=== PATIENT | male | born 1985 | race Hispanic/Latino ===

== ENCOUNTER 2023-12-05 10:58 | Emergency (ER) | payer OTHER, SELFPAY ==
[2023-12-05 10:59] VITALS: BP 143/91; PULSE 88; RESP 14; TEMP 36.3; O2SAT 100; BMI 32.0
--- NOTE | 2023-12-05 11:51 | EDS_ITS ---
HPI History of Present Illness Chief Complaint: Back Informant: patient Narrative Narrative: Patient presents with lower back pain. Patient states he had an episode sort of like this a year or so ago. He had pain in the lower back. But at that time pain went down his left leg. He states he now has pain in his lower back really mostly on the lower left but a little on the right. But it does not radiate. He has no bowel or bladder dysfunction. No fevers chills or IV drug use. He has no radiation down either leg this time. He has no weakness. He has no numbness. He states he put heat on it which helped but it got a lot worse when he took the heat off. He did not specifically hurt himself at work. 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 He has no history of cancer. No chemotherapy. No immune suppressant drugs in fact he is on no medications for any conditions. [facility] Medical History no medical history Home Medications cyclobenzaprine 10 mg tablet 10 mg PO TID PRN Muscle Spasm #12 TABLETS 12/05/23 [Rx Last Taken Unknown] naproxen 500 mg tablet (Naprosyn) 500 mg PO BID PRN pain #20 tabs 12/05/23 [Rx Last Taken Unknown] Allergy/AdvReac Type Severity Reaction Status Date / Time No Known Allergies Allergy Verified 12/05/23 10:59 ROS ROS ED ROS Narrative A complete review of systems was performed and is negative except as documented in the history of present illness. Some specific details below. Constitutional: No recent fevers or chills. No rigors. Patient has not generally felt ill. EYE: No discharge, visual complaints, or pain. ENT: No sinus pressure or pain. No nasal discharge. CV: No chest pain, pressure or aching. No palpitations or irregular beats. Patient has not been presyncopal or syncopal. Respiratory: No trouble breathing. No cough. No wheezing. No sputum production. No pain with breathing. GI: No abdominal pain. No nausea vomiting diarrhea. No blood in stool. No loss of bowel control. : No frequency dysuria or hematuria. No incontinence or urinary retention. Musculoskeletal: No recent trauma. No swelling. Please see history of present illness. Skin: No rash. No diaphoresis. No vesicles. Neuro: No weakness or numbness. No pain radiating down leg past the knee. No weakness of ambulation. No sensory changes in the extremities. Please see history of present illness also. Endocrine: No polyuria or polydipsia. EXAM Physical Exam Narrative Exam Narrative: CONSTITUTIONAL: Patient is nontoxic in appearance. The patient looks comfortable. Work of breathing looks normal. HEENT: No notable trauma. Mucous membranes moist. EYES: No conjunctival injection. No pallor. NECK: No meningismus. No JVD. CARDIOVASCULAR: Regular rate. Regular rhythm. No notable murmur. No JVD. RESPIRATORY: No respiratory distress. Breathing is unlabored. GASTROINTESTINAL: Not distended. Bowel sounds are normal. No tenderness. GENITOURINARY: No tenderness over the bladder. No CVA tenderness. His pain is lower. MUSCULOSKELETAL: Atraumatic. No peripheral edema. No cord. No tenderness along t he deep venous system. No asymmetry. Distal pulses are intact. He does have paraspinal tenderness more on the left than the right. This is very low the lumbar spine just at the upper edge of the sacrum. But there are no skin changes there. NEUROLOGICAL: Patient is alert and oriented. No focal deficit noted. Patient can stand on toes and heels and do squats. He got up off the chair himself. He is able to walk. He sat down on the bed and stood up again. No weakness at all. Patellar reflex 2+ and equal. Achilles reflex also 2+ and equal. SKIN: No noted rashes. No diaphoresis. No vesicles noted. No notable pallor. PSYCHIATRIC: Patient is calm. Mood is appropriate. Const Vital Signs: 12/05/23 10:59 Temperature 97.3 F L Temperature Source Temporal Pulse Rate 88 Respiratory Rate 14 Blood Pressure 143/91 H Blood Pressure Mean 108 Pulse Ox 100 Oxygen Delivery Method Room Air MDM MDM MDM Narrative Medical decision making narrative: Patient has pain in the lower back. He has no red flag of back pain. He has no history or physical exam finding of cord or root compression. I think nonsteroidals muscle relaxants are appropriate. I will write him a couple days off because I think his job is very physical and certainly contributes to potential back problems. Discharge Plan Triage Chief Complaint: Back ED Provider: Listerman,Peter Dx/Rx/DC Orders Clinical Impression: Acute lumbar myofascial strain Instructions: ED Back Sprain/Strain Prescriptions: New cyclobenzaprine [cyclobenzaprine] 10 mg tablet 10 mg PO TID PRN (Reason: Muscle Spasm) Qty: 12 0RF naproxen [Naprosyn] 500 mg tablet 500 mg PO BID PRN (Reason: pain) Qty: 20 0RF Stand Alone Forms: ED Work / School Excuse Primary Care Provider: Care Physician,No Primary Referrals: Luis Olsen MD [[employer] Staff - [employer]] - 1 Week if not improving
== END 2023-12-05 12:08 | disposition home or self-care (01) ==
LOC: ED 11:53
PROVIDERS: Emergency Provider Emergency Medicine; Visit Provider Emergency Medicine
DX: S39.012A Strain of muscle, fascia and tendon of lower back, initial encounter (principal); X58.XXXA Exposure to other specified factors, initial encounter
CPT/HCPCS: 99282

== ENCOUNTER → 2024-08-19 | Outpatient (CLI) | payer OTHER, SELFPAY ==
[2024-08-19 08:26] LABS: Bacteria 0 SEEN /hpf (None Seen); Mucous, Urine 0 SEEN /hpf (<or=2+); Red Blood Cells-Urine 0 SEEN /hpf (0-5); Squamous Epithelial Cells - UA 0 SEEN /hpf (0-5); White Blood Cells 0 SEEN /hpf (0-5)
[2024-08-19 09:27] LABS: Color, Urine Yellow (Yellow); Glucose, Dipstick Normal (Normal); Ketone-Dipstick Negative (Negative); Leukocyte Esterase-Dipstick Negative /ul (Negative); Nitrite-Dipstick Negative (Negative); Occult Blood-Urine Negative /ul (Negative); Protein-Dipstick 15 mg/dl (Negative); Urine Bilirubin Dipstick Negative (Negative); Urine Clarity Clear (Clear); Urine Urobilinogen Normal (Normal)
[2024-08-19 09:49] LABS: Cholesterol 200 mg/dL (200); Creatinine, Serum 0.85 mg/dL (0.70-1.30); EST Glomerular Filtration Rate 106 mL/min (>60); Est Glom Filt Rate - Afr Amer 129 mL/min (>60); Glucose 112 mg/dL (74-106); High Density Lipoprotein 41 mg/dL; Phosphorus 3.8 mg/dL (2.5-4.9); Triglycerides 171 mg/dL; Very Low Density Lipoprotein 34 mg/dL (5-40)
[2024-08-19 09:54] LABS: Microalbumin,Random Urine 79.7 mg/L (NO RANGE EST.)
[2024-08-19 09:55] LABS: Hemoglobin A1c 5.2 % (3.8-5.6)
== END | disposition home or self-care (01) ==
DX: Z52.4 Kidney donor (principal)
CPT/HCPCS: 36415; 80061; 81001; 82043; 82565; 82947; 83036; 84100; 86900; 86901

== ENCOUNTER → 2024-09-04 | Outpatient (CLI) | payer OTHER, SELFPAY ==
[2024-09-04 08:40] LABS: Glucose GTT- Fasting 110 mg/dL (74-106)
[2024-09-04 09:49] LABS: Glucose GTT- 1 Hour 235 mg/dL (120-170)
[2024-09-04 09:54] LABS: Glucose GTT-30 minutes 227 mg/dL (110-170)
[2024-09-04 10:40] LABS: Glucose GTT- 2 Hour 71 mg/dL (70-120)
== END | disposition home or self-care (01) ==
LOC: LAB 07:17
DX: Z52.4 Kidney donor (principal)
CPT/HCPCS: 36415; 82951; 82952